=== PATIENT | female | born 1965 | race Caucasian/White ===

== ENCOUNTER 2020-11-07 01:34 | Observation (INO) | payer BC, SELFPAY ==
[2020-11-07] VITALS (15 sets, daily range): BP systolic 104–155; BP diastolic 56–88; PULSE 48–102; RESP 10–20; TEMP 36.2–37.1; O2SAT 96–100; BMI 26.0
--- NOTE | ~2020-11-07 | XR_ITS ---
EXAMINATION: XR stent kub - surgery EXAM DATE: 11/07/2020 13:54 INDICATION: Distal right ureteral stone. TECHNIQUE: Fluoroscopy used during XR stent kub - surgery performed by Dr. Joe Briones MD, ur ologist. The radiologist Johny Cheung M.D. dictating this report of the image(s) available was not pr esent for the procedure. Total fluoroscopic time of 27 seconds. The DAP for this procedure was 304 radcm2. A total of 7 images sent to PACS from the exam. Correlation is made to CT abdomen pelvis mariusz e date. FINDINGS: Right ureter was cannulated. Possible stone extraction, correlate with procedure note. A d ouble-J ureteral stent was placed. IMPRESSION: Right ureteral stent in position. Reviewed, dictated and finalized at location B.
--- NOTE | ~2020-11-07 | CT_ITS ---
EXAMINATION: CT abdomen pelvis w con DATE: 11/07/2020 03:02 INDICATION: Right lower quadrant abdominal pain, severe TECHNIQUE: Computed tomography (CT) of the abdomen and pelvis was performed with 100 cc Omnipaque 350 intravenous contrast. Automated exposure control and iterative reconstruction technique were employe d. Exam dose: 571.41 mGy-cm total exam DLP. COMPARISON: None. FINDINGS: Minimal discoid atelectasis or scarring at the left lung base. The lung bases are clear of infiltrate or consolidation. Normal heart size. No pericardial or pleural effusion. No hepatic, splenic, pancreatic, and adrenal or renal space-occupying mass lesion is detected. No bile duct or pancreatic duct dilatation. There is an approximately 4.1 x 8.5 mm distal right ureteral calculus with associated mild to moderat e right hydroureteronephrosis. No other urinary tract calculus or left hydroureteronephrosis. Tiny left renal angiomyolipoma. No suspicious renal space occupying mass lesion. Normal caliber of the abdominal aorta. No intraperitoneal or retroperitoneal or pelvic mass lesion or adenopathy or ascites. The urinary bladder is unremarkable. Status post hysterectomy. Normal appendix. No bowel obstruction, bowel wall thickening, pneumatosis or intraperitoneal free air . Small fat-containing umbilical hernia. Severe degenerative disease at L4-5. Transitional L5 lumbosacr al vertebra. No suspicious osteolytic or osteoblastic lesions. IMPRESSION: 4.1 x 8.5 mm distal right ureteral calculus with associated mild to moderate right hydro ureteronephrosis Reviewed, dictated and finalized at Location [facility]. Reviewed, dictated and finalized at location A. IMPRESSION: 4.1 x 8.5 mm distal right ureteral calculus with associated mild t o moderate right hydroureteronephrosis
--- NOTE | 2020-11-07 01:50 | ED.ABDPAIN ---
HPI - Abdominal Pain General Chief Complaint: Abdominal Pain Stated Complaint: pain since april Time Seen by Provider: 11/07/20 01:50 Source: patient and family Mode of arrival: ambulatory Limitations: no limitations History of Present Illness HPI narrative: Patient is a previously healthy 55-year-old female who presents for evaluation of right-sided flank pain, right lower abdominal pain and hematuria. Patient states that symptoms have been intermittent and ongoing since April of this year. Patient lives in [facility] where she resides permanently, currently is in town for a . Patient's pain developed around 7 PM this evening when they were driving home from the . Patient states the pain is most severe it has ever been. She reports nausea without episodes of emesis. She reports pain is sharp and stabbing in nature in the right lower quadrant. She denies fever or chills. Patient reports hematuria without dysuria. Patient's work-up has been negative thus far. She states her primary care physician in [place] ordered a CT scan which was negative for nephrolithiasis. Patient is scheduled to have a cystoscopy done by urology in November in [place]. Patient denies any previous medical history. Related Data Home Medications Medication Instructions Recorded Confirmed No Home Medications 11/07/20 11/07/20 Allergies Allergy/AdvReac Type Severity Reaction Status Date / Time Sulfa (Sulfonamide Allergy Hives Verified 11/07/20 01:45 Antibiotics) Review of Systems Review of Systems: Narrative: CONSTITUTIONAL: Denies fever, chills, or sweats. EYES: Denies visual changes, redness, or discharge. ENT: Denies rhinorrhea, congestion, sore throat, or otalgia. CARDIOVASCULAR: Denies chest pain, palpitations, or edema. RESPIRATORY: Denies cough or dyspnea. GASTROINTESTINAL: Reports right-sided abdominal pain, nausea GENITOURINARY: Denies dysuria or hematuria. SKIN: Denies rash or itching. MUSCULOSKELETAL: Denies back pain, joint pain, or myalgia. NEUROLOGIC: Denies headache, numbness, or weakness. [facility] Social History Social History (Updated 11/07/20 @ 02:13 by Tanisha Dias MD) Smoking status: Never smoker Alcohol intake: never Substance use: never Living arrangements: with family Gender identity (if verbalized by the patient): Female Exam Narrative: Exam Narrative: GENERAL: Awake, alert, uncomfortable appearing HEAD: Normocephalic, atraumatic. EYES: PERRLA and EOMI. ENT: Nares clear, no rhinorrhea or epistaxis. Mucous membranes dry. NECK: Supple. CHEST: No respiratory distress, breathing even and non labored HEART: Tachycardic rate, sinus rhythm ABDOMEN:Non distended, tender in the right lower quadrant, no guarding, positive rebound, negative left lower quadrant tenderness, abdomen is soft, nonrigid EXTREMITIES: Normal range of motion. No edema. SKIN: Warm, dry, no rash. NEURO:No focal deficits. Alert and oriented x3 Course Vital Signs Vital signs: Vital Signs Temperature 36.2 C L 11/07/20 01:38 Pulse Rate 102 H 11/07/20 01:38 Respiratory Rate 19 11/07/20 01:38 Blood Pressure 137/78 11/07/20 01:38 Pulse Oximetry 100 11/07/20 01:38 Temperature 36.2 C L 11/07/20 01:38 Pulse Rate 52 L 11/07/20 05:06 Respiratory Rate 19 11/07/20 05:06 Blood Pressure 109/87 11/07/20 05:06 Pulse Oximetry 100 11/07/20 05:06 MDM - Abdominal Pain MDM Narrative Medical decision making narrative: Patient presented for evaluation of right-sided abdominal pain and back pain. At the time of assessment, ABCs are intact and vital signs are stable. Patient is mildly tachycardic. Blood pressure is normal. She is afebrile. Patient with a peculiar history of hematuria and flank pain with negative work-up thus far. Laboratory work-up shows no leukocytosis. No acute kidney injury or electrolyte derangement. UA with leukocyte esterase and WBCs, thus will treat with IV antibiotics. CT
[2020-11-07] MEDS: ONDANSETRON INJ 4 MG/2 ML VIAL IV PUSH ×2 (02:05→02:44)
[2020-11-07] MEDS: SODIUM CHLORIDE 0.9% IV 1,000 ML 999 ML IV CONT ×2 (02:05→04:50)
[2020-11-07] MEDS: MORPHINE SULFATE (*CRX) 4 MG/ML INJ IV PUSH (02:05)
[2020-11-07 02:11] LABS: Alanine Aminotransferase 23 U/L (4-35); Albumin Level 4.5 g/dL (3.5-5.1); Alkaline Phosphatase 85 U/L (38-126); Anion Gap 11 mmol/L (8-16); Aspartate Amino Transferase 28 U/L (14-36); Bilirubin,Total 0.5 mg/dL (0.2-1.3); Blood Urea Nitrogen 23 mg/dL (7-17); Calcium 9.9 mg/dL (8.4-10.2); Carbon Dioxide 28 mmol/L (22-30); Chloride 101 mmol/L (98-107); Estimated CRCL calculation 81 ml/min; Estimated Glomerular Filt Rate > 60; Glucose 113 mg/dL (65-105); Lipase 199 U/L (23-300); Potassium 3.7 mmol/L (3.4-5.0); Sodium 140 mmol/L (137-145)
[2020-11-07 02:13] LABS: Basophils Percent Auto 0.7 % (0.2-1.2); Eosinophils Absolute Auto 0.2 K/mm3 (0-0.3); Eosinophils Percent Auto 3.6 % (0-4.4); Hematocrit 38.5 % (37.0-47.0); Hemoglobin 12.5 g/dL (12.0-15.0); Immature Granulocyte Absolute 0.02 K/mm3 (0.00-0.031); Immature Granulocyte Percent A 0.4 % (0-0.5); Lymphocytes Absolute Auto 1.54 K/mm3 (0.9-3.2); Lymphocytes Percent Auto 28.8 % (18.3-44.2); Mean Corpuscular HGB Conc 32.5 g/dl (32-36); Mean Corpuscular Hemoglobin 30.9 pg (26-34); Mean Corpuscular Volume 95.3 fl (80-100); Mean Platelet Volume 10.3 fl (7.4-10.4); Monocytes Absolute Auto 0.5 K/mm3 (0.1-0.6); Monocytes Percent Auto 8.8 % (2.6-8.5); Neutrophils Absolute Auto 3.1 K/mm3 (1.3-6.7); Neutrophils Percent Auto 57.7 % (45.5-73.1); Platelet Count Result 196 k/mm3 (150-375); Red Blood Count 4.04 M/mm3 (4.2-5.4); Red Cell Distribution Width 12.3 % (11.5-14.5); White Blood Count 5.3 K/mm3 (4.5-10.0)
[2020-11-07] MEDS: HYDROmorphone HCL INJ (*CRX) 1 MG/ML SYR 0.5 MG IV PUSH (02:46)
--- NOTE | 2020-11-07 04:32 | ECG_ITS ---
Measurements Intervals [place] Rate: 42 P: 32 SC: 146 QRS: 60 QRSD: 85 T: 29 QT: 484 QTc: 408 Interpretive Statements SINUS BRADYCARDIA BORDERLINE ST ABNORMALITY- INFERIOR LEADS BASELINE ARTIFACT- I, II, AVR, AVL, AVF ABNORMAL ECG Electronically Signed On 11-07-2020 6:58:32 CDT by Wilman Trotter D.O.
[2020-11-07] MEDS: diphenhydrAMINE HCl INJ 50 MG/ML VIAL 25 MG IV PUSH (04:44)
[2020-11-07] MEDS: METOCLOPRAMIDE HCL INJ 10 MG/2 ML VIAL IV PUSH (04:46)
[2020-11-07 04:51] LABS: Add Urine Microscopic? YES; Appearance Urine Cloudy (Clear); Bilirubin Urine Negative (Negative); Blood Urine 3+ (Negative); Color Urine Red (Yellow); Glucose Urine UA Negative (Negative); Ketones Urine Negative (Negative); Leukocyte Esterase Ur 1+ LEU/UL (Negative); Mucus Urine Rare /lpf; Nitrate Urine Negative (Negative); Protein Urine 1+ mg/dL (Negative); RBC Urine >75 /hpf (0-2); Urobilinogen Urine Negative mg/dL (<2.0); WBC Urine 16-20 /hpf
[2020-11-07 04:53] LABS: Specific Grav Ur 1.054 (1.001-1.035)
[2020-11-07 05:18] LABS: Amphetamine Screen Urine Negative (Negative); Barbiturate Screen Urine Negative (Negative); Benzodiazepines Screen Urine Negative (Negative); Cannabinoid Screen Urine Negative (Negative); Cocaine Screen Urine Negative (Negative); Methadone Screen Urine Negative (Negative); Opiate Screen Urine Positive (Negative); Phencyclidine Screen Urine Negative (Negative)
--- NOTE | 2020-11-07 06:54 | WPDURCON ---
Assessment and Plan Assessment and plan (1) Right ureteral stone: Code(s): N20.1 - Calculus of ureter Status: Acute Assessment and Plan: Cystoscopy, right ureteroscopy with possible laser lithotripsy, stone extraction and possible right ureteral stent placement Urology Consult Note HPI Date Seen: 11/07/20 Requesting Physician: India Villafuerte DO Primary Care Provider: PHYSICIAN NOT ON STAFF Consult Narrative Narrative: Jenna Lomeli is a 55 year old female without history of urolithiasis who was evaluated by urologist and caritooid I will in April for hematuria. CT scan imaging at that time failed to reveal any urolithiasis. She is visiting this area because of a she developed right flank pain. Your evaluation he reveals a 9 mm right mid to distal ureteral calculus with moderate ureteral obstruction. She has had nausea and vomiting but denies fevers chills or gross hematuria. Review of Systems Cardiovascular: Cardiovascular: Denies chest pain, Denies lightheadedness, Denies palpitations and Denies dyspnea Respiratory: Respiratory: Denies dyspnea Gastrointestinal: Gastrointestinal: Denies diarrhea, Denies nausea and Denies vomiting Genitourinary: Genitourinary: Denies hematuria and Denies dysuria Endocrine: Endocrine: Denies palpitations [facility] Social History Social History Smoking status: Never smoker Alcohol intake: never Substance use: never Living arrangements: with family Gender identity (if verbalized by the patient): Female Meds Home Medications and Allergies Home Medications Medication Instructions Recorded Confirmed Type No Home Medications 11/07/20 11/07/20 History Allergies Allergy/AdvReac Type Severity Reaction Status Date / Time Sulfa (Sulfonamide Allergy Hives Verified 11/07/20 01:45 Antibiotics) Vital Signs Vital Signs - 24 hr 11/07/20 01:38 11/07/20 03:14 11/07/20 05:06 Temperature 97.2 F L Pulse Rate 102 H 62 52 L Respiratory Rate 19 17 19 Blood Pressure 137/78 155/88 H 109/87 Pulse Oximetry 100 100 100 11/07/20 06:18 Temperature Pulse Rate 48 L Respiratory Rate 13 Blood Pressure 106/66 Pulse Oximetry 96 Exam Const: General: no acute distress Resp: Effort & Inspection: normal respiratory effort GI: Inspection: non-distended GI Palp: No abdominal tenderness and No Guarding due to palpation present (GI) Auscultation: normal bowel sounds Results Labs CBC & Chem 7: 11/07/20 01:49 11/07/20 01:49 Labs: Short CBC 11/07/20 Range/Units 01:49 WBC 5.3 (4.5-10.0) K/mm3 Hgb 12.5 (12.0-15.0) g/dL Hct 38.5 (37.0-47.0) % Plt Count 196 (150-375) k/mm3 BMP 11/07/20 01:49 Sodium 140 Potassium 3.7 Chloride 101 Carbon Dioxide 28 BUN 23 H Creatinine 0.70 Glucose 113 H Calcium 9.9 Liver Function 11/07/20 Range/Units 01:49 Total Bilirubin 0.5 (0.2-1.3) mg/dL AST 28 (14-36) U/L ALT 23 (4-35) U/L Alkaline Phosphatase 85 (38-126) U/L Albumin 4.5 (3.5-5.1) g/dL Urine 11/07/20 Range/Units 04:14 Urine Color Red H (Yellow) Urine Appearance Cloudy H (Clear) Urine pH 7.0 (5.0-9.0) Ur Specific [place] 1.054 H (1.001-1.035) Urine Protein 1+ H (Negative) mg/dL Urine Glucose (UA) Negative (Negative) mg/dL
--- NOTE | 2020-11-07 07:40 | ADMGEN ---
This patient, Jenna Lomeli, was admitted to [facility] Surg Room 321-. Patient/family oriented to hospital policies and general routines including ID bracelet, bed and alarms, visiting hours, pain management, procedures, bathroom and other care routines, personal items, smoking policy, room service/diet, and visiting hours. Information on how to activate the Rapid Response Team has been discussed. Patient/Family are encouraged to report perceived risks to care and to ask questions if they do not understand what they are told or what they should do.
[2020-11-07] MEDS: SODIUM CHLORIDE 0.9% IV 1,000 ML 125 ML IV CONT (08:52)
--- NOTE | 2020-11-07 11:30 | PC.NURSE ---
To OR per santiagoer, IV on standby. Report given to RN.
--- NOTE | 2020-11-07 11:44 | WPDANESEPPF ---
Anes - Initial Pre Proc Eval Procedure: Operation Date: 11/07/20 12:45 Proposed Procedures p Cystoscopy, Right Ureteroscopy with Stone Extraction and Possible Stent Placement(Right) - Joe Briones MD s Possible Holmium Laser Procedure - Joe Briones MD Date/Time: 11/07/20 11:44 Surgeon: India Villafuerte DO Pre Op Diagnosis: Renal Colic Patient Data Age: 55 Gender: F Height: 1.73 m Weight: 77.8 kg Last Vital Signs Temp 36.7 C 11/07/20 07:40 Pulse 54 L 11/07/20 07:40 Resp 16 11/07/20 07:40 BP 104/63 11/07/20 07:40 Pulse Ox 100 11/07/20 07:40 Allergies Allergy/AdvReac Type Severity Reaction Status Date / Time Sulfa (Sulfonamide Allergy Hives Verified 11/07/20 08:22 Antibiotics) Home Medications Medication Instructions Recorded Confirmed Type No Home Medications 11/07/20 11/07/20 History Laboratory Tests 11/07/20 11/07/20 11/07/20 01:40 01:49 01:49 WBC 5.3 K/mm3 K/mm3 (4.5-10.0) RBC 4.04 M/mm3 L M/mm3 (4.2-5.4) Hgb 12.5 g/dL g/dL (12.0-15.0) Hct 38.5 % % (37.0-47.0) MCV 95.3 fl fl (80-100) MCH 30.9 pg pg (26-34) MCHC 32.5 g/dl g/dl (32-36) RDW 12.3 % % (11.5-14.5) Plt Count 196 k/mm3 k/mm3 (150-375) MPV 10.3 fl fl (7.4-10.4) Immature Gran % (Auto) 0.4 % % (0-0.5) Neut % (Auto) 57.7 % % (45.5-73.1) Lymph % (Auto) 28.8 % % (18.3-44.2) [place] % (Auto) 8.8 % H % (2.6-8.5) Eos % (Auto) 3.6 % % (0-4.4) Baso % (Auto) 0.7 % % (0.2-1.2) Lymph # (Auto) 1.54 K/mm3 K/mm3 (0.9-3.2) [place] # (Auto) 0.5 K/mm3 K/mm3 (0.1-0.6) Eos # (Auto) 0.2 K/mm3 K/mm3 (0-0.3) Baso # (Auto) 0.0 K/mm3 K/mm3 (0.0-0.1) Abs Immat Gran (auto) 0.02 K/mm3 K/mm3 (0.00-0.031) Absolute Neuts (auto) 3.1 K/mm3 K/mm3 (1.3-6.7) Absolute Nucleated RBC 0.0 K/mm3 K/mm3 (0.0-0.012) Nucleated RBC % 0.0 % % (0.0-0.2) Sodium 140 mmol/L mmol/L (137-145) Potassium 3.7 mmol/L mmol/L (3.4-5.0) Chloride 101 mmol/L mmol/L (98-107) Carbon Dioxide 28 mmol/L mmol/L (22-30) Anion Gap 11 mmol/L mmol/L (8-16) BUN 23 mg/dL H mg/dL (7-17) Creatinine 0.70 mg/dL mg/dL (0.7-1.0) Estim Creat Clear Calc 81 ml/min ml/min Estimated GFR > 60 (59 - ) Glucose 113 mg/dL H mg/dL (65-105) Calcium 9.9 mg/dL mg/dL (8.4-10.2) Total Bilirubin 0.5 mg/dL mg/dL (0.2-1.3) AST 28 U/L U/L (14-36) ALT 23 U/L U/L (4-35) Alkaline Phosphatase 85 U/L U/L (38-126) Total Protein 7.0 g/dL g/dL (6.3-8.2) Albumin 4.5 g/dL g/dL (3.5-5.1) Lipase 199 U/L U/L (23-300) TSH 4.120 uIU/mL uIU/mL (0.465-4.680) Urine Color Urine Appearance Urine pH Ur Specific [place] Urine Protein Urine Glucose (UA) Urine Ketones Ur Blood (Man) Urine Nitrate Urine Bilirubin Urine Urobilinogen Leukocyte Esterase Rfl Urine RBC Urine WBC Urine Mucus Urine Opiates Screen Urine Methadone Screen Ur Barbiturates Screen Ur Phencyclidine Scrn Ur Amphetamine Screen U Benzodiazepines Scrn Urine Cocaine Screen U Cannabinoids Screen 11/07/20 11/07/20 04:14 04:14 WBC RBC Hgb Hct MCV MCH MCHC RDW Plt Count MPV Immature Gran % (Auto) Neut % (Auto) Lymph % (Auto) [place] % (Auto) Eos %
[2020-11-07] MEDS: LACTATED RINGERS 1,000 ML 30 ML IV CONT (12:02)
[2020-11-07] MEDS: FAMOTIDINE 20 MG/2 ML VIAL IV PUSH (12:07)
[2020-11-07] MEDS: SCOPOLAMINE 1.5 MG PATCH TRANSDERM (12:09)
--- NOTE | 2020-11-07 13:59 | W.PM.PROC2 ---
Procedure Note - Detailed Date of Procedure 11/07/20 Pre-op Diagnosis Renal Colic Post-op Diagnosis same Procedure Performed Cystoscopy, right ureteroscopy with laser lithotripsy, stone extraction and right ureteral stent placement Surgeon Joe Briones MD Anesthesia general Description of Procedure The patient was brought to the operative suite where she is prepped and draped in a routine sterile fashion while in the dorsal lithotomy position after the uneventful induction of a general LMA anesthetic. A 19F rigid cystoscope was placed in the bladder. The patient had no evidence of urethral stricture or bladder neck contracture. The bladder mucosa was endoscopically normal without hyperemia or neoplasm. There was a single, orthotopic ureteral orifice bilaterally. A 0.035 glidewire was advanced into the [] renal pelvis under fluoroscopy. The distal ureter was dilated with an 8F/10F ureteral dilator. Ureteroscopy was undertaken with a short tapered semi-rigid ureteroscope. With ureteroscopy I fractured the stone into smaller pieces using a 273micron Holmium laser fiber with the Holmium laser. I was able to then extract the stone pieces using a 1.9F Escape, disposable stone basket. Due to the extent of this manipulation I did place a 4.8F double-J ureteral stent. The proximal coil of the stent was confirmed to be in the renal pelvis and the distal coil in the bladder. The patient's bladder was emptied and he was taken to the recovery room having tolerated this procedure well. Estimated Blood Loss 0 Drains Yes (4.8F right ureteral stent) Packing No Pathology yes Complications No immediate complications Condition stable Disposition PACU
--- NOTE | 2020-11-07 15:07 | SUR.PHASEI ---
[id number] sbar faxed floor notified
--- NOTE | 2020-11-07 17:29 | PM.IMHP ---
H&P: HPI History of Present Illness Date/Time: 11/07/20 17:29 Chief Complaint: abdominal pain and flank pain hematuria Narrative: Patient is a previously healthy 55-year-old female who presents for evaluation of right-sided flank pain, right lower abdominal pain and hematuria that started since last evening. Patient reports that she had intermittent similar symptoms since April of this year. She is from [place] and came to [facility] for a . Patient's pain developed around 7:00 p.m. last night when they were driving home from the . She also had nausea and few episodes of vomiting. The pain is sharp and stabbing in nature in the right lower quadrant. No fever or chills. Once she reach her hotel, she had urine with blood. She came to the ER for evaluation CT abdomen showed right distal ureteral stone with hydronephrosis. She currently is feeling okay except for mild soreness in her right lower quadrant. She also point to the area of right flank where the discomfort is associated. In the past with similar presentation she had a CT scan done which was negative for nephrolithiasis. See was scheduled to have a cystoscopy done by urology in November in [place]. Review of Systems Review of Systems: Narrative: - CONSTITUTIONAL: Denies weight loss, fever and chills. - HEENT: Denies changes in vision and hearing - RESPIRATORY: Denies SOB and cough. - CV: Denies palpitations and CP. - GI: Reports abdominal pain, nausea, vomiting and deniesdiarrhea. - : Denies dysuria and urinary frequency. reports hematuria - MSK: Denies myalgia and joint pain. - SKIN: Denies rash and pruritus. - NEUROLOGICAL: Denies headache and syncope. - PSYCHIATRIC: Denies recent changes in mood. Denies anxiety and depression. All systems reviewed & are unremarkable except as noted in HPI and below PMFSH Social History Social History Smoking status: Never smoker Alcohol intake: never Substance use: never Living arrangements: with family Gender identity (if verbalized by the patient): Female Sexual Orientation (if Verbalized by the Patient): Straight or Heterosexual Spiritual care concerns: No Meds Home Medications and Allergies Home Medications Medication Instructions Recorded Confirmed Type No Home Medications 11/07/20 11/07/20 History Allergies Allergy/AdvReac Type Severity Reaction Status Date / Time Sulfa (Sulfonamide Allergy Hives Verified 11/07/20 08:22 Antibiotics) Vital Signs Vital Signs - 24 hr 11/07/20 01:38 11/07/20 03:14 11/07/20 05:06 Temperature 97.2 F L Pulse Rate 102 H 62 52 L Respiratory Rate 19 17 19 Blood Pressure 137/78 155/88 H 109/87 Pulse Oximetry 100 100 100 11/07/20 06:18 11/07/20 07:40 11/07/20 12:24 Temperature 98.1 F 97.2 F L Pulse Rate 48 L 54 L 50 L Respiratory Rate 13 16 18 Blood Pressure 106/66 104/63 110/73 Pulse Oximetry 96 100 99 11/07/20 14:00 11/07/20 14:15 11/07/20 14:30 Temperature 97.2 F L Pulse Rate 68 76 62 Respiratory Rate 10 L 15 15 Blood Pressure 112/77 121/70 148/69 H Pulse Oximetry 100 100 96 11/07/20 14:45 11/07/20 15:15 11/07/20 15:30 Temperature 97.8 F 98.8 F Pulse Rate 61 56 L 55 L Respiratory Rate 14 16 16 Blood Pressure 117/66 124/76 139/76 Pulse Oximetry 96 98 99 11/07/20 16:00 Temperature 98.2 F Pulse Rate 55 L Respiratory Rate 16 Blood Pressure 116/61 Pulse Oximetry 100 Exam Narrative: Exam Narrative: GENERAL: Awake, alert, not in acute distress HEAD: Normocephalic, atraumatic. EYES: PERRLA and EOMI. ENT: Nares clear, no rhinorrhea or epistaxis. Mucous membranes dry. NECK: Supple. nontender CHEST: No respiratory distress, breathing even and non labored HEART: regular rate and rhythm no murmur rubs or gallops ABDOMEN:Non distended, tender in the right lower quadrant, no guarding, no rebound tenderness soft EXTREMITIES: Normal range of motion. No
[2020-11-08] VITALS: BP 104/57; PULSE 65; RESP 20; TEMP 36.4; O2SAT 99
[2020-11-08 04:00] VITALS: BP 108/59; PULSE 53; RESP 18; TEMP 36.4; O2SAT 99
[2020-11-08 06:46] LABS: Basophils Percent Auto 0.3 % (0.2-1.2); Eosinophils Percent Auto 0.2 % (0-4.4); Hematocrit 32.9 % (37.0-47.0); Hemoglobin 10.9 g/dL (12.0-15.0); Immature Granulocyte Absolute 0.02 K/mm3 (0.00-0.031); Immature Granulocyte Percent A 0.3 % (0-0.5); Lymphocytes Absolute Auto 0.86 K/mm3 (0.9-3.2); Lymphocytes Percent Auto 12.9 % (18.3-44.2); Mean Corpuscular HGB Conc 33.1 g/dl (32-36); Mean Corpuscular Hemoglobin 31.1 pg (26-34); Monocytes Absolute Auto 0.5 K/mm3 (0.1-0.6); Monocytes Percent Auto 6.8 % (2.6-8.5); Neutrophils Absolute Auto 5.3 K/mm3 (1.3-6.7); Neutrophils Percent Auto 79.5 % (45.5-73.1); Platelet Count Result 147 k/mm3 (150-375); Red Cell Distribution Width 12.4 % (11.5-14.5); White Blood Count 6.7 K/mm3 (4.5-10.0)
[2020-11-08 07:21] LABS: Anion Gap 8 mmol/L (8-16); Blood Urea Nitrogen 13 mg/dL (7-17); Carbon Dioxide 28 mmol/L (22-30); Chloride 104 mmol/L (98-107); Estimated CRCL calculation 81 ml/min; Estimated Glomerular Filt Rate > 60; Glucose 112 mg/dL (65-105); Potassium 3.9 mmol/L (3.4-5.0); Sodium 140 mmol/L (137-145)
--- NOTE | 2020-11-08 08:03 | WPDUROPN2 ---
Progress Note: A&P Assessment and Plan (1) Right ureteral stone: Code(s): N20.1 - Calculus of ureter Status: Acute Assessment and Plan: Doing well following stone extraction - minimal stent irritation. Discharge today / follow-up next week with her local urologist for stent removal. Subjective Subjective Date/Time Seen: 11/08/20 08:03 Comfortable, tolerating stent well Review of Systems Cardiovascular: Cardiovascular: Denies chest pain, Denies lightheadedness, Denies palpitations and Denies dyspnea Respiratory: Respiratory: Denies dyspnea Gastrointestinal: Gastrointestinal: Denies diarrhea, Denies nausea and Denies vomiting Genitourinary: Genitourinary: Denies hematuria and Denies dysuria Endocrine: Endocrine: Denies palpitations Exam Const: General: no acute distress Resp: Effort & Inspection: normal respiratory effort GI: Inspection: non-distended GI Palp: No abdominal tenderness and No Guarding due to palpation present (GI) Auscultation: normal bowel sounds Objective Data Vital Signs Vital Signs: Vital Signs - 24 hr 11/07/20 12:24 11/07/20 14:00 11/07/20 14:15 Temperature 97.2 F L 97.2 F L Pulse Rate 50 L 68 76 Respiratory Rate 18 10 L 15 Blood Pressure 110/73 112/77 121/70 Pulse Oximetry 99 100 100 11/07/20 14:30 11/07/20 14:45 11/07/20 15:15 Temperature 97.8 F Pulse Rate 62 61 56 L Respiratory Rate 15 14 16 Blood Pressure 148/69 H 117/66 124/76 Pulse Oximetry 96 96 98 11/07/20 15:30 11/07/20 16:00 11/07/20 17:00 Temperature 98.8 F 98.2 F 98.1 F Pulse Rate 55 L 55 L 54 L Respiratory Rate 16 16 16 Blood Pressure 139/76 116/61 111/67 Pulse Oximetry 99 100 99 11/07/20 20:00 11/08/20 00:00 11/08/20 04:00 Temperature 97.3 F L 97.6 F 97.5 F L Pulse Rate 75 65 53 L Respiratory Rate 20 20 18 Blood Pressure 123/56 L 104/57 L 108/59 L Pulse Oximetry 100 99 99 Intake/Output Intake/Output: Intake & Output 11/05/20 11/06/20 11/07/2021 23:59 23:59 23:59 23:59 Intake Total 5050 100 Balance 5050 100 Meds/Results Medications: Active Medications Generic Name Dose Route Start Last Admin Trade Name Freq PRN Reason Stop Dose Admin Fentanyl Citrate 25 mcg 11/07/20 11:45 Fentanyl Citrate Inj (*Crx) 100 Mcg/2 Ml Vial IV PUSH Q2M PRN Pain Fentanyl Citrate 25 mcg 11/07/20 12:27 Fentanyl Citrate Inj (*Crx) 100 Mcg/2 Ml Vial IV PUSH Q2M PRN Pain Hydromorphone HCl 1 mg 11/07/20 05:18 Hydromorphone Hcl Inj (*Crx) 1 Mg/Ml Syr IV PUSH Q3HR PRN Pain Rated 7-10 Ondansetron HCl 4 mg 11/07/20 05:18 Ondansetron Inj 4 Mg/2 Ml Vial IV PUSH Q4H PRN Nausea Ondansetron HCl 4 mg 11/07/20 11:45 Ondansetron Inj 4 Mg/2 Ml Vial IV PUSH ONCE PRN Nausea Ondansetron HCl 4 mg 11/07/20 12:27 Ondansetron Inj 4 Mg/2 Ml Vial IV PUSH ONCE PRN Nausea Radiology Results: ITS Impressions Abdomen/Pelvis CT 11/07/20 07:10 IMPRESSION: 4.1 x 8.5 mm distal right ureteral calculus with associated mild to moderate right hydroureteronephrosis Ureter Stent X-Ray 11/07/20 13:59 IMPRESSION: Right ureteral stent in position. Labs Labs: Laboratory Results - last 24 hr 11/08/20 11/08/20 06:04 06:04 WBC 6.7 RBC 3.50 L Hgb 10.9 L Hct 32.9 L MCV 94.0 MCH 31.1 MCHC 33.1 RDW 12.4 Plt Count 147 L MPV 11.0 H Immature Gran % (Auto) 0.3 Neut % (Auto) 79.5 H Lymph % (Auto) 12.9 L [place] % (Auto) 6.8 Eos % (Auto) 0.2 Baso % (Auto) 0.3 Lymph # (Auto) 0.86 L [place] # (Auto) 0.5 Eos # (Auto) 0.0 Baso # (Auto) 0.0 Abs Immat Gran (auto) 0.02 Absolute Neuts (auto) 5.3 Absolute Nucleated RBC 0.0 Nucleated RBC % 0.0 Sodium 140 Potassium 3.9 Chloride 104 Carbon Dioxide 28 Anion Gap 8 BUN 13 D Creatinine 0.70 Estim Creat Clear Calc 81 Estimated GFR > 60 Glucose 112 H Calcium 9.0
--- NOTE | 2020-11-08 08:49 | PM.DS ---
DS: Admitting Diagnosis Admitting Diagnosis Admitting Diagnosis: Obstructive uropathy DS: Discharge Diagnosis Discharge Diagnosis (1) Hydroureteronephrosis: Code(s): N13.30 - Unspecified hydronephrosis Status: Acute (2) Right ureteral stone: Code(s): N20.1 - Calculus of ureter Status: Acute (3) Renal colic on right side: Code(s): N23 - Unspecified renal colic Status: Acute (4) Bradycardia, sinus: Code(s): R00.1 - Bradycardia, unspecified Status: Acute (5) H/O: hysterectomy: Code(s): Z90.710 - Acquired absence of both cervix and uterus Status: Acute (6) Hematuria: Code(s): R31.9 - Hematuria, unspecified Status: Acute DS: Summary Hospital Course Hospital Course: Patient is a previously healthy 55-year-old female who presents for evaluation of right-sided flank pain, right lower abdominal pain and hematuria that started since last evening. Patient reports that she had intermittent similar symptoms since April of this year. She is from [place] and came to [facility] for a . Patient's pain developed around 7:00 p.m. last night when they were driving home from the . She also had nausea and few episodes of vomiting. The pain is sharp and stabbing in nature in the right lower quadrant. No fever or chills. Once she reach her hotel, she had urine with blood. She came to the ER for evaluation CT abdomen showed right distal ureteral stone with hydronephrosis. She currently is feeling okay except for mild soreness in her right lower quadrant. She also point to the area of right flank where the discomfort is associated. In the past with similar presentation she had a CT scan done which was negative for nephrolithiasis. See was scheduled to have a cystoscopy done by urology in November in [place]. She was evaluated by the Urology and underwent cystoscopy with extraction of stone and stent placement. She was placed on ceftriaxone for possible urinary tract infection her urine culture was pending at the time of discharge and was not growing anything by the time of discharge. She was switched to cephalexin at the time of discharge. she is okayed to be discharged home today per urology team. She needs a stent removal and is recommended to follow-up with local urologist in the week. Status at Discharge Functional status at discharge: independent ambulation Overall status at discharge: patient is progressing back to baseline Time Spent with Patient Time attestation: Total time spent providing and/or coordinating discharge services: 40 minutes Exam Narrative: Exam Narrative: GENERAL: Awake, alert, not in acute distress HEAD: Normocephalic, atraumatic. EYES: PERRLA and EOMI. ENT: Nares clear, no rhinorrhea or epistaxis. Mucous membranes dry. NECK: Supple. nontender CHEST: No respiratory distress, breathing even and non labored HEART: regular rate and rhythm no murmur rubs or gallops ABDOMEN:Non distended, tender in the right lower quadrant, no guarding, no rebound tenderness soft EXTREMITIES: Normal range of motion. No edema. SKIN: Warm, dry, no rash. NEURO:No focal deficits. Alert and oriented x3 DS: Data Data Completed and Pending Pending studies at discharge: Pending at discharge 11/07/20 13:47 Surgical [PTH] Routine Labs on day of discharge: Labs from last 24 hours 11/08/20 11/08/20 06:04 06:04 WBC 6.7 RBC 3.50 L Hgb 10.9 L Hct 32.9 L MCV 94.0 MCH 31.1 MCHC 33.1 RDW 12.4 Plt Count 147 L MPV 11.0 H Immature Gran % (Auto) 0.3 Neut % (Auto) 79.5 H Lymph % (Auto) 12.9 L [place] % (Auto) 6.8 Eos % (Auto) 0.2 Baso % (Auto) 0.3 Lymph # (Auto) 0.86 L [place] # (Auto) 0.5 Eos # (Auto) 0.0 Baso # (Auto) 0.0 Abs Immat Gran (auto) 0.02 Absolute Neuts (auto) 5.3 Absolute Nucleated RBC 0.0 Nucleated RBC % 0.0 Sodium 140 Potassium 3.9 Chloride 104 Carbon Dioxide 28 Anion Gap 8 BUN 13
== END 2020-11-08 09:55 | disposition home or self-care (01) ==
LOC: ANHED 04:37 → ANH3MEDSUR 06:55
PROVIDERS: Urology; Admitting Provider Internal Medicine; Emergency Provider Emergency Medicine; Visit Provider Internal Medicine
PROC: (CPT 52352; principal; 2020-11-07 12:45)
PROC: (CPT 52356; 2020-11-07 12:45)
DX: N13.2 Hydronephrosis with renal and ureteral calculous obstruction (principal); R00.1 Bradycardia, unspecified; Z90.710 Acquired absence of both cervix and uterus
CPT/HCPCS: 52356; 36415; 74177; 80048; 80053; 80307; 81001; 82365; 83690; 84443; 85025; 87086; 87088; 88300; 93005; 96361; 96365; 96375; 96376; 99285; A9270; C1769; C2617; G0378; J0330; J0696; J1100; J1170; J1200; J2250; J2270; J2405; J2704; J2765; J3010; J7030; J7120; Q9966; Q9967